=== PATIENT | male | born 1950 | race Caucasian/White ===

== ENCOUNTER 2024-02-27 21:52 | Inpatient (IN) ==
[2024-02-27 22:29] LABS: ABS Basophils 0.1 10^3/uL (0.0-0.1); ABS Eosinophils 0.1 10^3/uL (0.0-0.5); ABS Lymphocytes 1.2 10^3/uL (1.0-4.8); ABS Monocytes 0.6 10^3/uL (0.0-1.1); ABS Neutrophils 8.5 10^3/uL (1.5-7.6); ABS Nucleated RBC 0.01 10^3/ul; Eosinophil % 0.9 %; Hematocrit 44.1 % (38-53); Hemoglobin 14.9 g/dL (13.2-16.3); Lymphocyte % 11.9 %; Mean Corpuscular Hemoglobin 30.5 pg (27-33); Mean Corpuscular Hgb Conc 33.7 g/dL (31-36); Mean Corpuscular Volume 90.5 fL (80-97); Mean Platelet Volume 7.9 fL (7.5-11.2); Nucleated Red Blood Cells % 0.1 %/100WBC (0.0-0.8); Platelet Count 173 10^3/uL (150-450); Red Blood Count 4.87 10^6/uL (4.06-5.63); Red Cell Distribution Width 14.3 % (12-17); White Blood Count 10.5 10^3/uL (3.6-10.2)
[2024-02-27 22:39] LABS: INR 1.15 (0.85-1.14)
[2024-02-27 22:53] LABS: High Sens Troponin Baseline 18 pg/mL (<20)
[2024-02-27] MEDS: Ondansetron 4 mg VIAL 2 MG/ML 2 ml VIAL IV ONE (23:23)
[2024-02-27 23:26] LABS: ALT 22 U/L (7-52); Albumin 4.3 g/dL (3.2-5.2); Albumin/Globulin Ratio 1.6 (1-3); Alkaline Phosphatase 48 U/L (35-149); Anion Gap 9 mmol/L (2-16); Blood Urea Nitrogen 25 mg/dL (6-24); CO2 Carbon Dioxide 24 mmol/L (22-32); Chloride 106 mmol/L (101-111); Creatinine, Serum 1.37 mg/dL (0.67-1.17); Globulin 2.7 g/dL (2-4); Glucose 109 mg/dL (70-100); Sodium 139 mmol/L (135-145); Total Bilirubin 0.5 mg/dL (0.2-1.0); eGFR CKD-EPI 55.2 (>60)
[2024-02-27] MEDS: NS 0.9% 1000 ml BAG 1,000 ML IV ONE (23:26)
[2024-02-27 23:27] LABS: TSH Ultra Thyroid Stim Horm 1.81 mcIU/mL (0.34-5.60)
[2024-02-27 23:41] LABS: Urine Appearance Turbid; Urine Bilirubin Negative (Negative); Urine Blood 1+ (Negative); Urine Color Light-Yellow; Urine Glucose Negative (Negative); Urine Ketones Negative (Negative); Urine Nitrite Negative (Negative); Urine Protein Trace (Negative); Urine Specific Gravity 1.015 (1.002-1.030); Urine Urobilinogen Negative (Negative)
[2024-02-27 23:50] LABS: Urine Bacteria 1+ /HPF (Absent); Urine Red Blood Cell 1+(3-5/hpf) /HPF (0-Trace); Urine Squamous Epithelial Cell Present /HPF (Absent); Urine White Blood Cell 2+(11-20/hpf) /HPF (0-Trace)
[2024-02-27] MEDS: Metoclopramide 5 MG/ML VIAL (10 mg) IV SLOW PU ONE (23:54)
[2024-02-28 00:07] LABS: High Sensitivity Troponin 1 Hr 17 pg/mL (<20)
[2024-02-28] MEDS: Iodixanol 320 (CONTRAST) 100 ML SDV IV ONE (00:43)
[2024-02-28] MEDS: Carbamide Peroxide 6.5% OTIC 15 ML BTL BOTH EARS ONE (03:05)
[2024-02-28 03:15] LABS: Magnesium 1.8 mg/dL (1.9-2.7); Potassium Redraw 4.4 mmol/L (3.5-5.0)
[2024-02-28] MEDS: Magnesium Sulfate 2 gm BAG 2 GM/50 ML BAG IVPB ONE (05:54)
[2024-02-28] MEDS: Pantoprazole Packet (NF) 40 MG GRANPKT.DR PO SCH (11:16)
[2024-02-28 14:17] VITALS: BP 139/65
== END 2024-02-28 15:15 | disposition home or self-care (01) | DRG 69 ==
LOC: ED 21:52 → SUATTDRO 02-28 03:03 → EDHOLD 02-28 03:03 → MEDTELE 02-28 04:33
PROVIDERS: ADMIT Internal Medicine; ATTEND Hospitalist